=== PATIENT | male | born 1975 | race Caucasian/White ===

== ENCOUNTER 2017-02-07 23:39 | Inpatient (IN) | payer OTHER ==
[~2017-02-07] VITALS: Ht 167.6 cm; Wt 61.5 kg
--- NOTE | ~2017-02-07 | H ---
[facility] [place] [address] HISTORY AND PHYSICAL Name: SAMANTHA CHING Room #: 207-P [facility] IN M.R.#: [id number] Admission: 02/08/17 Attend Phys: Tanmay Garcia MD Discharge: Date of : 77 Report #: [id number] THIS REPORT FOR: //name// CC: MICHELLE Garcia DATE OF SERVICE: 02/08/2017 CHIEF COMPLAINT: Chest pain. HISTORY OF PRESENT ILLNESS: The patient is a 41-year-old male with history of coronary artery disease, status post CABG x 5 in 08/2016, hypertension, hyperlipidemia, diabetes, presented to the Emergency Room complaining of chest pain. The patient apparently had CABG in 08/2016. He was admitted at [facility] for chest pain and had a stress test about a month ago. The patient complains of chest pain primarily over the left chest wall, radiating to the left side of the neck into the left arm. It has been also associated with some shortness of breath. Pain has been constant in nature and has not subsided. It started this morning. Workup in the Emergency Room so far revealed a negative troponin. No history of any dizziness. No cough or expectoration. No fever or chills. PAST MEDICAL HISTORY: Significant for hypertension, diabetes, coronary artery disease, status post CABG. Dyslipidemia. PAST SURGICAL HISTORY: Significant for arthroscopy, CABG, tonsillectomy, ear drum repair. SOCIAL HISTORY: No smoking, alcohol abuse or illicit drug abuse. FAMILY HISTORY: Significant for heart disease. ALLERGIES: ALLERGIC TO SULFA. HOME MEDICATIONS: Looking at the nursing documentation, home meds were reviewed, but the patient has been noncompliant. We did have the pharmacist check on his medicines, apparently has not had Brilinta since November, Ranexa since December. REVIEW OF SYSTEMS: CONSTITUTIONAL: The patient denies any recent weight loss, weight gain. No fever or chills. EYES: No change in vision. THROAT: Denies any sore throat. CARDIOVASCULAR: As above. RESPIRATORY: As above. [facility] [address] [place] [address] HISTORY AND PHYSICAL Name: JEANESAMANTHA Room #: 207-P [facility] IN M.R.#: [id number] Admission: 02/08/17 Attend Phys: Tanmay Garcia MD Discharge: Date of : 77 Report #: [id number] GASTROINTESTINAL: No nausea, vomiting, abdominal pain. GENITOURINARY: No dysuria, hematuria. NEUROLOGIC: No focal numbness or weakness of the extremity. PSYCHIATRIC: No anxiety or depression. The 12-point review of system is negative other than the positive and negative dictated in the history of present illness and the review of system. PHYSICAL EXAMINATION: VITAL SIGNS: Reviewed. Blood pressure is 104/71. Heart rate is 90 per minute, afebrile. GENERAL: The patient is awake and alert, not in acute respiratory distress. He does appear very anxious and crying. EYES: Pupils equal, reactive to light. Throat appears normal. NECK: Supple, no JVD, no bruit, no lymphadenopathy. CARDIOVASCULAR SYSTEM: S1, S2, negative S3, no murmur. CHEST: Bilateral air entry present. Clear on auscultation. ABDOMEN: Soft, bowel sounds present, no mass, no organomegaly, no tenderness. PERIPHERY: No pedal edema. No calf tenderness. Dorsalis pedis 1+. NEUROLOGICAL: No gross motor or sensory deficit. LABORATORY DATA: Reviewed. CT of the chest showed no evidence of any PE or dissection. Chest x-ray showed no acute abnormality. EKG showed normal sinus rhythm, no significant changes. Troponin has been negative so far. White count is normal hemoglobin, hematocrit and platelets. PT, PTT are within normal limit. Chemistry showed initial blood glucose was elevated at 639, the repeat one is 282. Sodium is 132, BUN and creatinine are within normal 10 and 1.3. AST and ALT are within normal limit. Lipase is 252. ASSESSMENT: 1. Chest pain. Etiology not clear. He did have a negative stress test a month ago, had a coronary artery bypass graft last year. A CT of the chest was requested to rule out any pulmonary embolism, which has been negative for any pulmonary embolism or dissection. We will obtain echocardiogram. Cardiology has been consulted. The patient will be admitted to telemetry. 2. The patient will be continued on his Ranexa and aspirin. 3. Deep venous thrombosis prophylaxis. He will be placed on Lovenox for deep venous thrombosis prophylaxis. 4. History of dyslipidemia. LDL is 157. I am not sure if he has been compliant with medication. The patient will be restarted back on Lipitor. 5. Diabetes, uncontrolled. The patient will be restarted back on his medication. We will follow blood sugars and cover with sliding scale insulin. We also requested an A1c level. 6. Anxiety. [facility] [address] [place] [address] HISTORY AND PHYSICAL Name: SAMANTHA CHING Room #: 207-P [facility] IN .R.#: [id number] Admission: 02/08/17 Attend Phys: aTnmay Garcia MD Discharge: Date of : 77 Report #: [id number] Treatment plan has been explained to the patient in detail. <ELECTRONICALLY SIGNED> By: Tanmay Garcia MD 02/08/17 1625 1325 1417 Tanmay Garcia MD /nt
--- NOTE | ~2017-02-07 | 2DMMODE ---
[facility] [address] [place] [address] 2 D/M-MODE ECHOCARDIOGRAM Name: SAMANTHA CHING Room #: 207-P ADM IN M.R.#: [id number] Admission: 02/08/17 Attend Phys: Dustin Hathaway Discharge: Date of : 77 Date of Service: 02/08/17 1323 Report #: [id number] THIS REPORT FOR: //name// APPROVED REPORT Study performed: 02/08/2017 13:55:44 EXAM: Comprehensive 2D, Doppler, and color-flow Echocardiogram Patient Location: Echo lab Room #: [facility] Status: routine BSA: 1.67 HR: 80 bpm BP: 104/71 mmHg Rhythm: NSR Other Information Study Quality: Good Indications Atypical chest pain. Hx: CABG in 2017. DM, HTN, HLP 2D Dimensions RVDd: 33.47 mm LVEF(%): 53.25 (>50%) IVSd: 9.73 (7-11mm) LVOT Diam: 20.67 (18-24mm) LVDd: 42.72 mm PWd: 9.18 (7-11mm) Ascending Ao: 30.64 (22-36mm) LVDs: 31.11 (25-40mm) Aortic Root: 30.86 mm Jean's LVEF: 53.25 % Volumes Left Atrial Volume (Systole) Single Plane 4CH: 32.53 mL Single Plane 2CH: 34.14 mL LA ESV Index: 21.00 mL/m2 Aortic Valve AoV Peak Palmer.: 0.97 m/s AO Peak Gr.: 3.78 mmHg LVOT Max P.93 mmHg LVOT Max V: 0.69 m/s ALIZA Vmax: 2.40 cm2 Mitral Valve E/A Ratio: 1.3 MV Decel. Time: 166.81 ms [facility] [place] [address] 2 D/M-MODE ECHOCARDIOGRAM Name: SAMANTHA CHING Room #: 207-P [facility] IN ..#: [id number] Admission: 02/08/17 Attend Phys: Dustin Hathaway Discharge: Date of : 77 Date of Service: 02/08/17 1323 Report #: [id number] MV E Max Palmer.: 0.59 m/s MV A Palmer.: 0.44 m/s MV PHT: 48.38 ms IVRT: 69.20 ms Pulmonary Valve PV Peak Palmer.: 0.60 m/s PV Peak Gr.: 1.43 mmHg Pulmonary Vein P Vein S: 0.43 m/s P Vein D: 0.61 m/s P Vein S/D Ratio: 0.70 Tricuspid Valve TR Peak Palmer.: 1.88 m/s RAP Estimate: 5.00 mmHg TR Peak Gr.: 14.16 mmHg PA Pressure: 19.00 mmHg Left Ventricle The left ventricle is normal size. There is normal LV segmental wall motion. There is normal left ventricular wall thickness. Left ventricular systolic function is normal. LVEF is 55%. The left ventricular diastolic function is normal. Right Ventricle The right ventricle is normal size. The right ventricular systolic function is normal. Atria The left atrium size is normal. The right atrium size is normal. Aortic Valve The aortic valve is normal in structure. No aortic regurgitation is present. There is no aortic valvular stenosis. Mitral Valve The mitral valve is normal in structure. Trace mitral regurgitation. No evidence of mitral valve stenosis. Tricuspid Valve The tricuspid valve is normal in structure. Trace tricuspid regurgitation. Estimated PAP is 20mmHg. Pulmonic Valve The pulmonary valve is normal in structure. Mild pulmonic [facility] [address] [place] [address] 2 D/M-MODE ECHOCARDIOGRAM Name: JEANESAMANTHA Room #: 207-P [facility] IN [facility]#: [id number] Admission: 02/08/17 Attend Phys: Dustin Hathaway Discharge: Date of : 77 Date of Service: 02/08/17 1323 Report #: [id number] regurgitation. Great Vessels The aortic root is normal in size. The ascending aorta is normal in size. IVC is normal in size and collapses >50% with inspiration. Pericardium There is no pericardial effusion. <Conclusion> 1. Normal echocardiogram with Doppler EF 55% 2. No pericardial effusion <ELECTRONICALLY SIGNED> By: Andrzej Baldwin MD, FACC 02/08/171322 22 22 Andrzej Baldwin MD, FACC /INF
--- NOTE | ~2017-02-07 | EKG ---
[place] [address] [facility] [place] [address] ELECTROCARDIOGRAM REPORT Name: JEANESAMANTHA Room #: 170-6 ADM IN .R.#: [id number] Admission: 02/08/17 Attend Phys: Tanmay Garcia MD Discharge: Date of : 77 Report #: [id number] THIS REPORT FOR: //name// [facility] ED Test Date: 2017-02-07 Test Time: 23:53:18 Pat Name: SAMANTHA CHING Department: Room: 170 Gender: M [employer] Tender: KARRI : 1975 Requested By: Madeline Farris Order Number: [id number] MD: Andrzej Baldwin Measurements Intervals [place] Rate: 95 P: 28 NE: 152 QRS: 7 QRSD: 91 T: 11 QT: 344 QTc: 433 Interpretive Statements Sinus rhythm No significant abnormality No previous ECG available for comparison Electronically Signed On 02-08-2017 8:31:25 CAREER ADVISOR by Andrzej Baldwin [email or web address] <ELECTRONICALLY SIGNED> By: Andrzej Baldwin MD, [facility] 02/08/17 0831 2353 2353 Andrzej Baldwin MD, FACC /EPI
--- NOTE | ~2017-02-07 | EKG ---
[address] [address] ELECTROCARDIOGRAM REPORT Name: SAMANTHA CHING Room #: 207- ADM IN M.R.#: [id number] Admission: 02/08/17 Attend Phys: Tanmay Garcia MD Discharge: Date of : 77 Report #: [id number] THIS REPORT FOR: //name// 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
[~2017-02-07 23:39] MED LIST: ACETAMINOPHEN-1 EAC1 PO; ASPIR 8181 MG; BRILINTA90 MG; CYCLOBENZAPRINE5 MG PO; HUMALOG100 UNIT/2; HYDROCODONE-APA1 TA1 PO; IBUPROFEN 800800 M1 PO; IBUPROFEN 800800 MG PO; LANTUS100 UNIT/M; LIDOCAINE VISC100 M1 MM; LIPITOR80 MG; LOPRESSOR25 PO; NORCO 5-325 TA1 EAC1 PO; NORCO 5-325 TA1 EACH PO; NOVOLIN 70100 UNIT/5 SQ; PENICILLIN V P500 MG PO; PENICILLIN VK250 MG PO; PENICILLIN VK500 M1 PO; PREDNISONE 20 M20 M1 PO; PROAIR HFA8.5 GM INH; RANEXA500 MG; ROBAXIN 750 MG750 M1 PO; TRAMADOL 50 MG50 MG; ULTRAM 50MG TAB50 MG PO; VENTOLIN HFA 1818 GM INH; ZPAK PO
[2017-02-07 23:42] VITALS: BP 146/100
[2017-02-08] MEDS ORDERED: NEURONTIN600 MG PO
[2017-02-08] MEDS ORDERED: IMDUR 60 MG TAB60 M1
[2017-02-08 00:09] LABS: ABSOLUTE NEUTROPHILS 2.7 thou/uL (1.4-8.2); BASOPHILS 1.1 % (0.0-2.0); EOSINOPHILS 6.6 % (0.0-3.0); HEMATOCRIT 39.2 % (42.0-52.0); HEMOGLOBIN 12.8 gm/dL (14.0-18.0); LYMPHOCYTES 23.5 % (24.0-44.0); MCHC 32.7 g/dL (28.0-37.0); MCV 82.5 fL (80.0-100.0); MONOCYTES 7.2 % (1.0-8.0); POLYS 61.6 % (36.0-66.0); RBC 4.75 mil/uL (4.50-6.00); RDW 14.9 % (10.5-14.5); WBC 4.4 thou/uL (4.0-11.0)
[2017-02-08 00:35] LABS: APTT 25.2 Seconds (24.5-32.8); PROTIME 9.5 Seconds (9.3-11.4)
[2017-02-08 00:36] LABS: ANION GAP 10 mmol/L (7-16); BUN 10 mg/dL (7-18); CALCIUM 8.8 mg/dL (8.5-10.1); CHLORIDE 96 mmol/L (98-107); CO2 26 mmol/L (21-32); CREATININE 1.3 mg/dL (0.7-1.3); POTASSIUM 3.9 mmol/L (3.5-5.1); SODIUM 132 mmol/L (136-145); TROPONIN-I < 0.04 ng/mL (<0.06)
[2017-02-08 00:37] LABS: GLUCOSE 639 mg/dL (74-106)
[2017-02-08 01:02] LABS: LARGE PLATELETS RARE; PLATELET COUNT 158 thou/uL (150-400)
[2017-02-08 09:40] LABS: CHOLESTEROL 213 mg/dL (<200); HDL CHOLESTEROL 37 mg/dL (>40); LDL CHOLESTEROL 151 mg/dL (<100); TC:HDL 5.8 Ratio (Not establshd); TRIGLYCERIDE 129 mg/dL (<150); VLDL 26 mg/dL (<40)
[2017-02-08 10:34] VITALS: BP 104/71; BP 106/72
[2017-02-08 15:16] VITALS: BP 103/73
[2017-02-08 16:08] LABS: GLYCOHEMOGLOBIN (HGB A1C) 10.9 % (4.8-5.6)
[2017-02-08 19:53] VITALS: BP 113/76
[2017-02-08 23:11] VITALS: BP 102/57
[2017-02-09 04:24] VITALS: BP 86/55
[2017-02-09 07:50] VITALS: BP 107/70
[2017-02-09] MEDS ORDERED: PERCOCET PO (09:35)
[2017-02-09 09:46] VITALS: BP 107/70
[2017-05-11] MEDS ORDERED: FLAGYL500 MG PO (21:41)
[2017-05-11] MEDS ORDERED: PHENERGAN 25 MG25 MG PO (21:41)
[2017-05-11] MEDS ORDERED: NORCO 5-325 TA1 EAC1 PO (21:41)
[2017-09-12] MEDS ORDERED: IBUPROFEN 800800 M1 PO (20:31)
[2017-09-12] MEDS ORDERED: ROBAXIN 750 MG750 M1 PO (20:31)
[2017-11-27] MEDS ORDERED: LISINOPRIL5 MG PO (07:38)
== END 2017-02-09 10:50 | disposition home or self-care (01) | DRG 313 ==
LOC: ER 23:39 → EROBS 02-08 02:54 → 2N 02-08 11:00 → ENTRNSPT 02-09 10:44 → EDTRNSPTSTS 02-09 10:47 → 2N 02-09 10:50
PROVIDERS: Emergency Medicine; Internal Medicine
DX: R07.89 Other chest pain (principal); I24.9 Acute ischemic heart disease, unspecified; I25.10 Atherosclerotic heart disease of native coronary artery without angina pectoris; I10 Essential (primary) hypertension; E78.5 Hyperlipidemia, unspecified; E11.65 Type 2 diabetes mellitus with hyperglycemia; F41.9 Anxiety disorder, unspecified; Z95.1 Presence of aortocoronary bypass graft; Z79.4 Long term (current) use of insulin; Z88.2 Allergy status to sulfonamides; Z91.14 Patient's other noncompliance with medication regimen; Z79.82 Long term (current) use of aspirin; Z79.899 Other long term (current) drug therapy; Z82.49 Family history of ischemic heart disease and other diseases of the circulatory system
CPT/HCPCS: 10081